=== PATIENT | female | born 1940 | race Caucasian/White ===

== ENCOUNTER → 2017-03-24 | Outpatient (CLI) | payer MEDICARE, MEDICAID ==
[~2017-03-24] MED LIST: AMLO1TAB64; ASPI-1035; GUAI10SY2 PO; LANS15CA5 PO
== END | disposition home or self-care (01) ==
LOC: MAMMO 09:21
PROVIDERS: ATTEND Specialist
DX: Z12.31 Encounter for screening mammogram for malignant neoplasm of breast (principal)
CPT/HCPCS: G0202

== ENCOUNTER 2017-04-16 08:38 | Emergency (ER) | payer MEDICARE, MEDICAID ==
[~2017-04-16] VITALS: Ht 160 cm; Wt 79.0 kg
[2017-04-16 11:31] VITALS: BP 142/93
== END 2017-04-16 11:36 | disposition home or self-care (01) ==
LOC: ER 10:25
DX: B37.2 Candidiasis of skin and nail (principal); M79.676 Pain in unspecified toe(s); E11.9 Type 2 diabetes mellitus without complications; I10 Essential (primary) hypertension; Z79.82 Long term (current) use of aspirin
CPT/HCPCS: 73660; 99284

== ENCOUNTER 2017-11-14 08:38 | Emergency (ER) | payer MEDICAID, MEDICARE ==
[~2017-11-14] VITALS: Ht 160 cm; Wt 79.0 kg
[~2017-11-14 08:38] MED LIST changes: -ASPI-1035; +ASPI-1158; +LANS15CA12 PO; -LANS15CA5 PO
[2017-11-14 09:46] LABS: BASOPHILS % 0.6 % (0.0-2.0); EOSINOPHILS % 2.7 % (0.0-5.0); HEMOGLOBIN. 12.6 g/dL (12.0-16.0); LYMPHOCYTES % 28.2 % (20.0-50.0); MEAN CORPUSCULAR HEMOGLOBIN 31.4 pg (28.0-32.0); MEAN CORPUSCULAR VOLUME 92.2 fL (81.0-99.0); MEAN PLATELET VOLUME 9.3 fl (7.4-10.4); MONOCYTES % 8.3 % (2.0-8.0); NEUTROPHILS % 60.2 % (40.0-76.0); PLATELET 171 x1000/uL (130-400); RED BLOOD CELL COUNT 4.02 mill/uL (4.2-5.4); RED CELL DISTRIBUTION WIDTH 13.9 % (11.6-14.6)
[2017-11-14 10:02] LABS: CARBON DIOXIDE 29 mEq/L (21-32); CHLORIDE 106 mEq/L (98-107); TROPONIN I < 0.02 ng/mL (0.00-0.04)
[2017-11-14 11:50] VITALS: BP 118/63
== END 2017-11-14 11:55 | disposition home or self-care (01) ==
LOC: ER 08:44
DX: J20.9 Acute bronchitis, unspecified (principal); I10 Essential (primary) hypertension; E11.9 Type 2 diabetes mellitus without complications; Z79.82 Long term (current) use of aspirin
CPT/HCPCS: 36415; 71010; 80053; 83605; 84484; 85025; 87040; 87804; 93005; 99285

== ENCOUNTER → 2018-03-24 | Outpatient (CLI) | payer MEDICARE | END | disposition home or self-care (01) | LOC: MAMMO 09:06 | PROVIDERS: ATTEND Specialist | DX: Z12.31 Encounter for screening mammogram for malignant neoplasm of breast (principal) | CPT/HCPCS: 77067 ==

== ENCOUNTER 2018-11-26 14:50 | Inpatient (IN) | payer MEDICARE ==
[~2018-11-26] VITALS: Ht 160 cm; Wt 78.9 kg
[2018-11-26] MEDS ORDERED: SODIUM CHLORIDE 0.9% 1,000 ML IV ONE (16:06)
[2018-11-26] MEDS ORDERED: INSULIN REGULAR (HUMULIN R) 300UNITS/3ML SUBCUT ONE (16:15)
[2018-11-26 17:04] LABS: BASOPHILS % 1.3 % (0.0-2.0); EOSINOPHILS % 1.3 % (0.0-5.0); HEMOGLOBIN. 13.1 g/dL (12.0-16.0); LYMPHOCYTES % 25.7 % (20.0-50.0); MEAN CORPUSCULAR HEMOGLOBIN 31.7 pg (28.0-32.0); MEAN CORPUSCULAR VOLUME 96.9 fL (81.0-99.0); MEAN PLATELET VOLUME 11.2 fl (7.4-10.4); MONOCYTES % 7.7 % (2.0-8.0); PLATELET 233 x1000/uL (130-400); RED BLOOD CELL COUNT 4.13 mill/uL (4.2-5.4)
[2018-11-26 17:07] LABS: CHLORIDE 102 mEq/L (98-107)
[2018-11-26 17:14] LABS: AMYLASE 38 IU/L (25-115)
[2018-11-26 17:18] LABS: CLARITY URINE CLEAR (CLEAR); COLOR URINE YELLOW (YELLOW); KETONES URINE NEGATIVE (NEGATIVE); LEUKOCYTE ESTERASE URINE NEGATIVE (NEGATIVE); NITRITE URINE NEGATIVE (NEGATIVE); OCCULT BLOOD URINE NEGATIVE (NEGATIVE); PH URINE 6.5 (4.5-8.0); PROTEIN URINE NEGATIVE (NEGATIVE); SPECIFIC GRAVITY URINE 1.036 (1.005-1.030); UROBILINOGEN URINE 0.2 E.U./dL (0.2-1.0)
[2018-11-26 17:22] LABS: BETA HYDROXYBUTYRATE 0.4 mMol/L (0.0-0.3)
[2018-11-26 22:00] VITALS: BP 138/71
[2018-11-27] VITALS (7 sets, daily range): BP systolic 101–127; BP diastolic 58–72
[2018-11-27] MEDS ORDERED: DEXTROSE 50% WATER 50ML SYRINGE IV PRN ×2 (00:30)
[2018-11-27] MEDS ORDERED: ACETAMINOPHEN 325MG TABLET PO PRN (00:45)
[2018-11-27] MEDS: BLOOD SUGAR DIAGNOSTIC STRIP TEST SCH ×3 (06:40→17:12)
[2018-11-27] MEDS ORDERED: PANTOPRAZOLE 40MG DR TABLET PO SCH (07:40)
[2018-11-27] MEDS ORDERED: INSULIN LISPRO 100 UNITS/ML SUBCUT SCH (08:10)
[2018-11-27] MEDS ORDERED: ENOXAPARIN 40MG/0.4ML SYR SUBCUT SCH (09:00)
[2018-11-27] MEDS ORDERED: AMLODIPINE 5MG TABLET PO SCH (09:00)
[2018-11-27] MEDS ORDERED: ASPIRIN 81MG TABLET PO SCH (09:00)
[2018-11-27 10:34] LABS: HEMATOCRIT 37.3 % (36.0-48.0); HEMOGLOBIN 12.4 g/dL (12.0-16.0); MEAN CORPUSCULAR HEMOGLOBIN 31.5 pg (28.0-32.0); RED BLOOD CELL COUNT 3.93 mill/uL (4.2-5.4); RED CELL DISTRIBUTION WIDTH 14.7 % (11.6-14.6)
[2018-11-27] MEDS ORDERED: BLOOD SUGAR DIAGNOSTIC STRIP TEST SCH ×3 (12:40)
[2018-11-27] MEDS: INSULIN LISPRO 100 UNITS/ML SUBCUT SCH ×2 (12:51→17:13)
[2018-11-27 13:23] LABS: CHLORIDE 102 mEq/L (98-107)
[2018-11-27 13:30] LABS: LDL CHOLESTEROL 81 mg/dL (5-100)
[2018-11-27 13:32] LABS: HDL CHOLESTEROL 44 mg/dL (40-59)
[2018-11-27] MEDS ORDERED: FLUCONAZOLE 150MG TABLET PO NR (16:00)
[2018-11-27] MEDS: NYSTATIN POWDER 15GM TOP SCH ×2 (17:12→17:13)
[2018-11-27] MEDS ORDERED: METFORMIN HCL 500MG TABLET PO SCH (18:10)
== END 2018-11-27 17:35 | disposition home or self-care (01) | DRG 638 ==
LOC: ER 17:01 → 7WST 19:45 → EDBEDREQ 19:48 → EDBEDREQTM 19:48 → ENRESERV 20:42
PROVIDERS: ADMIT Specialist; ATTEND Specialist
DX: E11.65 Type 2 diabetes mellitus with hyperglycemia (principal); E87.1 Hypo-osmolality and hyponatremia; B37.9 Candidiasis, unspecified; E87.5 Hyperkalemia; R74.0 Nonspecific elevation of levels of transaminase and lactic acid dehydrogenase [LDH]; I11.9 Hypertensive heart disease without heart failure; K21.9 Gastro-esophageal reflux disease without esophagitis; Z79.4 Long term (current) use of insulin; Z82.49 Family history of ischemic heart disease and other diseases of the circulatory system; Z83.3 Family history of diabetes mellitus; Z98.51 Tubal ligation status; Z79.82 Long term (current) use of aspirin; Z79.899 Other long term (current) drug therapy
CPT/HCPCS: 36415; 71045; 80061; 82010; 82150; 82962; 83036; 84484; 85027; 93005; 93306; 96360; 96372; 99285; J1650; J1815; J7030

== ENCOUNTER 2021-03-09 15:08 | Emergency (ER) | payer OTHER, MEDICAID ==
[~2021-03-09] VITALS: Ht 160 cm; Wt 73.0 kg
[~2021-03-09 15:08] MED LIST changes: -ASPI-1158; +ASPI-1406
[2021-03-09] MEDS ORDERED: OMEP40CA12 MT (16:47)
[2021-03-09] MEDS ORDERED: AMLO10TA80 MT (16:47)
[2021-03-09 17:03] VITALS: BP 105/59
== END 2021-03-09 17:04 | disposition home or self-care (01) ==
LOC: ER 15:08
DX: Z76.0 Encounter for issue of repeat prescription (principal); E11.9 Type 2 diabetes mellitus without complications; I10 Essential (primary) hypertension; Z79.899 Other long term (current) drug therapy; Z79.82 Long term (current) use of aspirin; Z98.51 Tubal ligation status
CPT/HCPCS: 99283

== ENCOUNTER 2022-02-12 11:10 | Inpatient (IN) | payer OTHER, MEDICAID ==
[~2022-02-12] VITALS: Ht 160 cm; Wt 87.1 kg
[~2022-02-12 11:10] MED LIST changes: +AMLO10TA80 MT; -AMLO1TAB64; +OMEP40CA20 MT
[2022-02-12 11:45] LABS: BASOPHILS % 1.2 % (0.0-2.0); EOSINOPHILS % 2.1 % (0.0-5.0); HEMATOCRIT. 36.6 % (36.0-48.0); HEMOGLOBIN. 12.3 g/dL (12.0-16.0); LYMPHOCYTES % 34.8 % (20.0-50.0); MEAN CORPUSCULAR HEMOGLOBIN 30.9 pg (28.0-32.0); MEAN PLATELET VOLUME 8.9 fl (7.4-10.4); MONOCYTES % 6.8 % (2.0-8.0); NEUTROPHILS % 55.1 % (40.0-76.0); PLATELET 210 x1000/uL (130-400); RED BLOOD CELL COUNT 3.98 mill/uL (4.2-5.4); RED CELL DISTRIBUTION WIDTH 14.1 % (11.6-14.6)
[2022-02-12 11:51] LABS: CHLORIDE 107 mEq/L (98-107)
[2022-02-12] MEDS ORDERED: ASPIRIN 325MG EC TABLET PO ONE (17:00)
[2022-02-12] MEDS ORDERED: NITROGLYCERIN 0.4MG TABLET SL SL ONE (17:00)
[2022-02-12 17:23] LABS: CLARITY URINE CLEAR (CLEAR); COLOR URINE YELLOW (YELLOW); KETONES URINE 1+ (NEGATIVE); LEUKOCYTE ESTERASE URINE NEGATIVE (NEGATIVE); NITRITE URINE NEGATIVE (NEGATIVE); OCCULT BLOOD URINE NEGATIVE (NEGATIVE); PH URINE 5.5 (4.5-8.0); PROTEIN URINE NEGATIVE (NEGATIVE); SPECIFIC GRAVITY URINE 1.027 (1.005-1.030); UROBILINOGEN URINE 0.2 E.U./dL (0.2-1.0)
[2022-02-13 02:28] VITALS: BP 134/71
[2022-02-13 03:06] VITALS: BP 134/71
[2022-02-13] MEDS ORDERED: METF-414 PO (04:27)
[2022-02-13] MEDS ORDERED: DEXTROSE 50% WATER 50ML SYRINGE IV PRN (05:45)
[2022-02-13] MEDS ORDERED: PANTOPRAZOLE 40MG DR TABLET PO SCH (07:20)
[2022-02-13] MEDS: BLOOD SUGAR DIAGNOSTIC STRIP TEST SCH ×4 (07:49→21:00)
[2022-02-13 08:00] VITALS: BP 110/58
[2022-02-13] MEDS: METOPROLOL TARTRATE 25MG TABLET PO SCH ×2 (09:00→21:00)
[2022-02-13] MEDS: ACETAMINOPHEN 325MG TABLET PO PRN ×2 (09:14→17:01)
[2022-02-13] MEDS: PANTOPRAZOLE 40MG DR TABLET PO SCH (09:14)
[2022-02-13] MEDS: ASPIRIN 81MG TABLET PO SCH (09:14)
[2022-02-13] MEDS: METFORMIN HCL 500MG TABLET PO SCH ×2 (09:14→17:01)
[2022-02-13] MEDS: ENOXAPARIN 40MG/0.4ML SYR SUBCUT SCH (09:20)
[2022-02-13] MEDS ORDERED: REGADENOSON 0.4 MG/5 ML IV ONE (11:15)
[2022-02-13 12:00] VITALS: BP 117/70
[2022-02-13 16:00] VITALS: BP 106/64
[2022-02-13 20:00] VITALS: BP 106/53
[2022-02-13] MEDS ORDERED: ATORVASTATIN CALCIUM 40MG TABLET PO SCH (21:00)
[2022-02-14] VITALS: BP 111/72
[2022-02-14 03:57] VITALS: BP 94/53
[2022-02-14] MEDS: BLOOD SUGAR DIAGNOSTIC STRIP TEST SCH ×2 (06:41→12:46)
[2022-02-14 07:40] VITALS: BP 111/69
[2022-02-14 08:00] LABS: BASOPHILS % 0.9 % (0.0-2.0); EOSINOPHILS % 3.1 % (0.0-5.0); HEMATOCRIT. 35.1 % (36.0-48.0); HEMOGLOBIN. 11.8 g/dL (12.0-16.0); MEAN CORPUSCULAR HEMOGLOBIN 30.9 pg (28.0-32.0); MEAN CORPUSCULAR VOLUME 91.8 fL (81.0-99.0); MEAN PLATELET VOLUME 9.1 fl (7.4-10.4); MONOCYTES % 7.6 % (2.0-8.0); NEUTROPHILS % 51.4 % (40.0-76.0); PLATELET 178 x1000/uL (130-400); RED BLOOD CELL COUNT 3.82 mill/uL (4.2-5.4); RED CELL DISTRIBUTION WIDTH 14.1 % (11.6-14.6)
[2022-02-14 08:15] LABS: CHLORIDE 108 mEq/L (98-107)
[2022-02-14] MEDS: ENOXAPARIN 40MG/0.4ML SYR SUBCUT SCH (09:07)
[2022-02-14] MEDS ORDERED: REGADENOSON 0.4 MG/5 ML IV ONE (10:36)
[2022-02-14] MEDS: METFORMIN HCL 500MG TABLET PO SCH (11:24)
[2022-02-14] MEDS: PANTOPRAZOLE 40MG DR TABLET PO SCH (11:24)
[2022-02-14] MEDS: METOPROLOL TARTRATE 25MG TABLET PO SCH (11:24)
[2022-02-14] MEDS: ASPIRIN 81MG TABLET PO SCH (11:25)
[2022-02-14 11:40] VITALS: BP 113/64
[2022-02-14 14:27] VITALS: BP 114/64
== END 2022-02-14 15:56 | disposition home or self-care (01) | DRG 206 ==
LOC: ER 11:10 → MICUSO 22:57 → EDBEDREQ 23:11 → EDBEDREQTM 23:11 → 6WST 02-13 02:47
PROVIDERS: ADMIT Internal Medicine; ATTEND Internal Medicine
DX: M94.0 Chondrocostal junction syndrome [Tietze] (principal); I10 Essential (primary) hypertension; E11.9 Type 2 diabetes mellitus without complications; E66.9 Obesity, unspecified; E78.5 Hyperlipidemia, unspecified; Z20.822 Contact with and (suspected) exposure to COVID-19; E78.00 Pure hypercholesterolemia, unspecified; Z86.73 Personal history of transient ischemic attack (TIA), and cerebral infarction without residual deficits; Z98.51 Tubal ligation status; Z68.34 Body mass index [BMI] 34.0-34.9, adult
CPT/HCPCS: 36415; 71045; 78452; 80048; 80053; 80061; 81003; 82962; 83036; 83735; 83880; 84484; 85025; 85379; 87426; 93005; 93017; 93306; 99285; A9558; J1650; J2785

== ENCOUNTER 2022-03-13 12:31 | Emergency (ER) | payer OTHER, MEDICAID ==
[~2022-03-13] VITALS: Ht 157.5 cm; Wt 78.0 kg
[~2022-03-13 12:31] MED LIST changes: -AMLO10TA80 MT; -ASPI-1406; -GUAI10SY2 PO; -LANS15CA12 PO; +METF-414 PO; -OMEP40CA20 MT
[2022-03-13] MEDS ORDERED: DIPHENHYDRAMINE 25MG CAPSULE PO ONE (14:15)
[2022-03-13] MEDS ORDERED: PREDNISONE 20MG TABLET PO ONE (14:15)
[2022-03-13] MEDS ORDERED: CETI-89 MT (18:36)
[2022-03-13] MEDS ORDERED: TC025C15 TP (18:36)
[2022-03-13 18:43] VITALS: BP 116/68
== END 2022-03-13 19:29 | disposition home or self-care (01) ==
LOC: ER 13:20
DX: L30.9 Dermatitis, unspecified (principal); E11.9 Type 2 diabetes mellitus without complications; E78.00 Pure hypercholesterolemia, unspecified; I10 Essential (primary) hypertension; Z98.51 Tubal ligation status
CPT/HCPCS: 99283; J7512; Q0163

== ENCOUNTER 2022-05-13 12:19 | Emergency (ER) | payer OTHER, MEDICAID ==
[~2022-05-13] VITALS: Ht 152.4 cm; Wt 78.0 kg
[~2022-05-13 12:19] MED LIST changes: +CETI-89 MT; +TC025C15 TP
[2022-05-13 15:16] LABS: CHLORIDE 108 mEq/L (98-107)
[2022-05-13 15:22] LABS: EOSINOPHILS % 1.2 % (0.0-5.0); HEMATOCRIT. 40.2 % (36.0-48.0); HEMOGLOBIN. 13.3 g/dL (12.0-16.0); LYMPHOCYTES % 27.7 % (20.0-50.0); MEAN CORPUSCULAR HEMOGLOBIN 30.8 pg (28.0-32.0); MEAN CORPUSCULAR VOLUME 93.3 fL (81.0-99.0); MEAN PLATELET VOLUME 10.2 fl (7.4-10.4); MONOCYTES % 6.6 % (2.0-8.0); NEUTROPHILS % 63.5 % (40.0-76.0); PLATELET 188 x1000/uL (130-400); RED BLOOD CELL COUNT 4.31 mill/uL (4.2-5.4); RED CELL DISTRIBUTION WIDTH 14.4 % (11.6-14.6)
[2022-05-13 16:36] VITALS: BP 104/66
[2022-05-13 17:29] LABS: CLARITY URINE CLEAR (CLEAR); COLOR URINE YELLOW (YELLOW); KETONES URINE NEGATIVE (NEGATIVE); LEUKOCYTE ESTERASE URINE NEGATIVE (NEGATIVE); NITRITE URINE NEGATIVE (NEGATIVE); OCCULT BLOOD URINE NEGATIVE (NEGATIVE); PH URINE 5.5 (4.5-8.0); PROTEIN URINE NEGATIVE (NEGATIVE); SPECIFIC GRAVITY URINE 1.028 (1.005-1.030)
== END 2022-05-13 17:50 | disposition home or self-care (01) ==
LOC: ER 12:19
DX: I95.9 Hypotension, unspecified (principal); E11.9 Type 2 diabetes mellitus without complications; E78.00 Pure hypercholesterolemia, unspecified; Z98.51 Tubal ligation status; Z79.84 Long term (current) use of oral hypoglycemic drugs
CPT/HCPCS: 36415; 80053; 81003; 83605; 83880; 84484; 85025; 99283

== ENCOUNTER 2022-11-22 14:27 | Inpatient (IN) | payer OTHER, MEDICAID ==
[~2022-11-22] VITALS: Ht 160 cm; Wt 74.8 kg
[2022-11-22 16:18] LABS: BASOPHILS % 0.2 % (0.0-2.0); HEMATOCRIT. 41.6 % (36.0-48.0); HEMOGLOBIN. 13.6 g/dL (12.0-16.0); LYMPHOCYTES % 10.4 % (20.0-50.0); MEAN CORPUSCULAR HEMOGLOBIN 30.7 pg (28.0-32.0); MEAN PLATELET VOLUME 10.3 fl (7.4-10.4); MONOCYTES % 1.8 % (2.0-8.0); NEUTROPHILS % 87.6 % (40.0-76.0); PLATELET 170 x1000/uL (130-400); RED BLOOD CELL COUNT 4.42 mill/uL (4.2-5.4)
[2022-11-22 16:30] LABS: CHLORIDE 103 mEq/L (98-107)
[2022-11-22 16:42] LABS: BETA HYDROXYBUTYRATE 1.4 mMol/L (0.0-0.3)
[2022-11-22] MEDS ORDERED: SODIUM CHLORIDE 0.9% 1,000 ML IV ONE (17:45)
[2022-11-22 20:29] LABS: CLARITY URINE CLEAR (CLEAR); COLOR URINE YELLOW (YELLOW); KETONES URINE 3+ (NEGATIVE); LEUKOCYTE ESTERASE URINE NEGATIVE (NEGATIVE); NITRITE URINE NEGATIVE (NEGATIVE); OCCULT BLOOD URINE NEGATIVE (NEGATIVE); PH URINE 5.5 (4.5-8.0); PROTEIN URINE NEGATIVE (NEGATIVE); SPECIFIC GRAVITY URINE 1.033 (1.005-1.030); UROBILINOGEN URINE 0.2 E.U./dL (0.2-1.0)
[2022-11-23 01:13] VITALS: BP 134/72
[2022-11-23 04:00] VITALS: BP 143/82
[2022-11-23] MEDS ORDERED: NITROGLYCERIN 0.4MG TABLET SL SL PRN (04:00)
[2022-11-23] MEDS ORDERED: DEXTROSE 50% WATER 50ML SYRINGE IV PRN (04:00)
[2022-11-23] MEDS: BLOOD SUGAR DIAGNOSTIC STRIP TEST SCH ×4 (06:51→21:00)
[2022-11-23] MEDS ORDERED: BLOOD SUGAR DIAGNOSTIC STRIP TEST SCH (07:10)
[2022-11-23] MEDS: INSULIN LISPRO 100 UNITS/ML SUBCUT SCH ×4 (07:14→21:00)
[2022-11-23 08:00] VITALS: BP 104/53
[2022-11-23] MEDS ORDERED: AMLODIPINE 10MG TABLET PO SCH (09:00)
[2022-11-23] MEDS ORDERED: METOPROLOL TARTRATE 25MG TABLET PO SCH (09:00)
[2022-11-23] MEDS ORDERED: LOSARTAN POTASSIUM 100 MG TABLET PO SCH (09:00)
[2022-11-23] MEDS ORDERED: ATORVASTATIN CALCIUM 10MG TABLET PO SCH (09:00)
[2022-11-23 10:18] LABS: BASOPHILS % 0.6 % (0.0-2.0); EOSINOPHILS % 1.4 % (0.0-5.0); HEMATOCRIT. 37.2 % (36.0-48.0); HEMOGLOBIN. 12.2 g/dL (12.0-16.0); LYMPHOCYTES % 40.1 % (20.0-50.0); MEAN CORPUSCULAR HEMOGLOBIN 30.3 pg (28.0-32.0); MEAN CORPUSCULAR VOLUME 92.8 fL (81.0-99.0); MEAN PLATELET VOLUME 10.2 fl (7.4-10.4); MONOCYTES % 7.3 % (2.0-8.0); NEUTROPHILS % 50.6 % (40.0-76.0); PLATELET 147 x1000/uL (130-400); RED BLOOD CELL COUNT 4.01 mill/uL (4.2-5.4); RED CELL DISTRIBUTION WIDTH 13.9 % (11.6-14.6)
[2022-11-23 10:29] LABS: CHLORIDE 108 mEq/L (98-107)
[2022-11-23] MEDS: METFORMIN HCL 500MG TABLET PO SCH ×2 (10:35→18:10)
[2022-11-23] MEDS: OMEPRAZOLE 20MG CAPSULE EXTENDED RELEASE PO SCH (10:35)
[2022-11-23] MEDS: CHOLECALCIFEROL (D3) 1000 UNIT TABLET PO SCH (10:36)
[2022-11-23] MEDS: INSULIN GLARGINE 100 UNITS/ML SUBCUT SCH ×2 (10:40→22:10)
[2022-11-23 10:42] LABS: HDL CHOLESTEROL 65 mg/dL (40-59); LDL CHOLESTEROL 94 mg/dL (5-100)
[2022-11-23 12:00] VITALS: BP 110/61
[2022-11-23] MEDS ORDERED: INSU100I28 SQ (14:23)
[2022-11-23 16:00] VITALS: BP 115/55
[2022-11-23] MEDS ORDERED: NALOXONE HCL 0.4MG/ML VIAL IV PRN (17:15)
[2022-11-23 20:00] VITALS: BP 105/57
[2022-11-23] MEDS: ATORVASTATIN CALCIUM 10MG TABLET PO SCH (21:18)
[2022-11-24] VITALS: BP 105/48
[2022-11-24 04:00] VITALS: BP_SYST 115; BP_DIAS 78; BP_DIAS 79
[2022-11-24] MEDS: BLOOD SUGAR DIAGNOSTIC STRIP TEST SCH ×4 (06:32→20:35)
[2022-11-24] MEDS: INSULIN LISPRO 100 UNITS/ML SUBCUT SCH ×4 (06:36→20:32)
[2022-11-24 08:00] VITALS: BP 111/58
[2022-11-24] MEDS: OMEPRAZOLE 20MG CAPSULE EXTENDED RELEASE PO SCH (08:46)
[2022-11-24] MEDS: CHOLECALCIFEROL (D3) 1000 UNIT TABLET PO SCH (08:47)
[2022-11-24] MEDS: METFORMIN HCL 500MG TABLET PO SCH ×2 (08:47→16:49)
[2022-11-24] MEDS: INSULIN GLARGINE 100 UNITS/ML SUBCUT SCH ×2 (11:26→21:53)
[2022-11-24 12:00] VITALS: BP 105/57
[2022-11-24 16:00] VITALS: BP 107/56
[2022-11-24 20:00] VITALS: BP 110/56
[2022-11-24] MEDS: ATORVASTATIN CALCIUM 10MG TABLET PO SCH (20:31)
[2022-11-25] VITALS: BP 116/72
[2022-11-25 04:00] VITALS: BP 100/64
[2022-11-25] MEDS: BLOOD SUGAR DIAGNOSTIC STRIP TEST SCH ×4 (05:46→21:00)
[2022-11-25] MEDS: INSULIN LISPRO 100 UNITS/ML SUBCUT SCH ×4 (05:46→21:22)
[2022-11-25] MEDS: METFORMIN HCL 500MG TABLET PO SCH ×2 (07:40→18:10)
[2022-11-25 08:00] VITALS: BP 119/71
[2022-11-25] MEDS: CHOLECALCIFEROL (D3) 1000 UNIT TABLET PO SCH (09:00)
[2022-11-25] MEDS: FAMOTIDINE 20MG TABLET PO SCH ×2 (09:00→21:17)
[2022-11-25] MEDS: INSULIN GLARGINE 100 UNITS/ML SUBCUT SCH ×2 (11:09→22:00)
[2022-11-25 12:00] VITALS: BP 105/51
[2022-11-25 16:00] VITALS: BP 108/55
[2022-11-25 20:00] VITALS: BP 126/67
[2022-11-25] MEDS: ATORVASTATIN CALCIUM 10MG TABLET PO SCH (21:17)
[2022-11-26] VITALS (7 sets, daily range): BP systolic 107–135; BP diastolic 66–80
[2022-11-26] MEDS: INSULIN LISPRO 100 UNITS/ML SUBCUT SCH ×4 (06:14→21:18)
[2022-11-26] MEDS: BLOOD SUGAR DIAGNOSTIC STRIP TEST SCH ×4 (06:14→21:14)
[2022-11-26] MEDS ORDERED: REGADENOSON 0.4 MG/5 ML IV ONE ×2 (07:52→10:15)
[2022-11-26] MEDS: CHOLECALCIFEROL (D3) 1000 UNIT TABLET PO SCH (09:00)
[2022-11-26] MEDS: FAMOTIDINE 20MG TABLET PO SCH ×2 (09:00→20:20)
[2022-11-26] MEDS: METFORMIN HCL 500MG TABLET PO SCH ×2 (09:30→17:35)
[2022-11-26] MEDS: INSULIN GLARGINE 100 UNITS/ML SUBCUT SCH ×2 (09:35→21:18)
[2022-11-26] MEDS: METOPROLOL TARTRATE 25MG TABLET PO SCH (16:00)
[2022-11-26] MEDS ORDERED: SODIUM CHLORIDE 0.9% 500 ML IV ONE ×2 (17:15→21:00)
[2022-11-26] MEDS ORDERED: GABAPENTIN 100MG CAPSULE PO NR (17:15)
[2022-11-26 17:20] LABS: BASOPHILS % 0.5 % (0.0-2.0); EOSINOPHILS % 1.1 % (0.0-5.0); HEMOGLOBIN. 13.6 g/dL (12.0-16.0); LYMPHOCYTES % 24.1 % (20.0-50.0); MEAN CORPUSCULAR HEMOGLOBIN 30.8 pg (28.0-32.0); MEAN CORPUSCULAR VOLUME 92.9 fL (81.0-99.0); MEAN PLATELET VOLUME 10.4 fl (7.4-10.4); MONOCYTES % 5.6 % (2.0-8.0); NEUTROPHILS % 68.7 % (40.0-76.0); PLATELET 158 x1000/uL (130-400); RED BLOOD CELL COUNT 4.41 mill/uL (4.2-5.4); RED CELL DISTRIBUTION WIDTH 14.2 % (11.6-14.6)
[2022-11-26 17:28] LABS: CHLORIDE 105 mEq/L (98-107)
[2022-11-26] MEDS: HYDROCODONE/ACETAMINOPHEN 10/325MG TABLET PO PRN ×2 (19:43→23:40)
[2022-11-26] MEDS: ATORVASTATIN CALCIUM 10MG TABLET PO SCH (21:14)
[2022-11-27] VITALS: BP 109/69
[2022-11-27 04:00] VITALS: BP 116/68
[2022-11-27] MEDS: HYDROCODONE/ACETAMINOPHEN 10/325MG TABLET PO PRN (05:24)
[2022-11-27] MEDS: BLOOD SUGAR DIAGNOSTIC STRIP TEST SCH ×2 (07:10→12:19)
[2022-11-27] MEDS: INSULIN LISPRO 100 UNITS/ML SUBCUT SCH ×2 (07:40→12:19)
[2022-11-27] MEDS: METOPROLOL TARTRATE 25MG TABLET PO SCH (10:04)
[2022-11-27] MEDS: FAMOTIDINE 20MG TABLET PO SCH (10:05)
[2022-11-27] MEDS: CHOLECALCIFEROL (D3) 1000 UNIT TABLET PO SCH (10:05)
[2022-11-27] MEDS: METFORMIN HCL 500MG TABLET PO SCH (10:05)
[2022-11-27] MEDS: INSULIN GLARGINE 100 UNITS/ML SUBCUT SCH (10:23)
[2022-11-27 12:00] VITALS: BP 135/75
[2022-11-27 16:00] VITALS: BP 125/75
[2022-11-27] MEDS ORDERED: SODIUM CHLORIDE 0.9% 500 ML IV ONE (21:00)
== END 2022-11-27 17:20 | disposition home or self-care (01) | DRG 206 ==
LOC: ER 14:27 → 8WST 20:52 → EDBEDREQ 20:55 → ENRESERV 21:37
PROVIDERS: ADMIT Internal Medicine; ATTEND Internal Medicine
DX: M94.0 Chondrocostal junction syndrome [Tietze] (principal); E11.65 Type 2 diabetes mellitus with hyperglycemia; Z20.822 Contact with and (suspected) exposure to COVID-19; I10 Essential (primary) hypertension; Z79.899 Other long term (current) drug therapy; Z82.3 Family history of stroke
CPT/HCPCS: 36415; 71045; 78452; 80048; 80053; 80061; 81003; 82010; 82962; 83036; 83880; 84484; 85025; 85379; 87426; 93005; 93017; 93306; 99285; A9500; J1815; J2785; J7030

== ENCOUNTER 2024-09-13 14:30 | Emergency (ER) | payer BC, MEDICAID ==
[~2024-09-13] VITALS: Ht 165.1 cm; Wt 75.0 kg
[~2024-09-13 14:30] MED LIST changes: +AMLO10TA80 PO; +ATOR10TA69 PO; +INSU100I28 SQ; +LOSA100T33 PO
[2024-09-13 14:33] VITALS: PULSE 110; O2SAT 97
[2024-09-13 14:36] VITALS: BP 115/60; RESP 18; TEMP 98.8; O2SAT 100
[2024-09-13] MEDS ORDERED: IBUP-2028 MT (16:13)
[2024-09-13] MEDS ORDERED: IBUPROFEN 400MG TABLET PO ONE (16:15)
== END 2024-09-13 16:50 | disposition home or self-care (01) ==
LOC: ER 15:01
DX: J34.89 Other specified disorders of nose and nasal sinuses (principal); E11.9 Type 2 diabetes mellitus without complications; I10 Essential (primary) hypertension; Z79.4 Long term (current) use of insulin
CPT/HCPCS: 99282